=== PATIENT | male | born 1975 | race Caucasian/White ===

== ENCOUNTER 2023-10-04 00:48 | Emergency (ER) | payer BC ==
[~2023-10-04] VITALS: Ht 175.3 cm; Wt 96.2 kg
[2023-10-04 01:00] VITALS: BP_SYST 109; BP_SYST 110; PULSE 66; PULSE 98; RESP 20; TEMP 98.1; O2SAT 95
[2023-10-04] MEDS: LIDOCAINE/EPI 2% 1:100000 20 ML VIAL INJ ONE (01:36)
== END 2023-10-04 02:49 | disposition home or self-care (01) ==
LOC: SED 00:48
DX: S01.81XA Laceration without foreign body of other part of head, initial encounter (principal); F10.129 Alcohol abuse with intoxication, unspecified; V89.2XXA Person injured in unspecified motor-vehicle accident, traffic, initial encounter; Y93.89 Activity, other specified; Y92.89 Other specified places as the place of occurrence of the external cause; Y99.8 Other external cause status; Y90.9 Presence of alcohol in blood, level not specified
CPT/HCPCS: 70450-TC; 71250-TC; 99284